=== PATIENT | male | born 1945 | race Caucasian/White ===

== ENCOUNTER 2017-11-28 00:48 | Day surgery (SDC) | payer MEDICARE, OTHER ==
[~2017-11-28] VITALS: Ht 177.8 cm; Wt 92.1 kg
[~2017-11-28 00:48] MED LIST: LEVO750T25 PO; OND4 PO; OXYC1TAB54 FT; TAM4 PO
[2017-11-28] MEDS ORDERED: cefTRIAXone(*) 1 GM VIAL 1 GM in NS(*) 0.9% 100 ML ADDVANT BAG 100 ML IVPB ONE (11:25)
[2017-11-28 13:05] LABS: PLATELET COUNT, AUTOMATED 111 K/uL (150-450)
[2017-11-28] MEDS ORDERED: cefTRIAXone(*) 2 GM VIAL 2 GM in NS(*) 0.9% 100 ML ADDVANT BAG 100 ML IVPB ONE ×2 (13:20→13:50)
[2017-11-28 13:45] VITALS: BP 157/96
[2017-11-28] MEDS ORDERED: MIDAZOLAM 2 MG/2 ML VIAL IVP PRN (13:50)
[2017-11-28] MEDS ORDERED: NORMOSOL R SOLN(*) 1000 ML BAG 1,000 ML IV PRN (13:50)
[2017-11-28] MEDS ORDERED: GENTAMICIN(*) 80 MG/2 ML VIAL 160 MG in NS(*) 0.9% 100 ML BAG 100 ML IVPB ONE (13:50)
[2017-11-28] MEDS ORDERED: LIDOCAINE/SOD BICARB 8.4% SYR ID ONE (13:50)
[2017-11-28] MEDS ORDERED: FAMOTIDINE 20 MG TAB PO ONE (13:50)
[2017-11-28] MEDS ORDERED: fentaNYL CITR 100 MCG/2 ML AMP ONE (14:00)
[2017-11-28] MEDS ORDERED: PROPOFOL EMUL(*) 10MG/ML 20 ML 60 ML ONE (14:01)
[2017-11-28] MEDS ORDERED: LIDOCAINE 2% IV 100 MG/5ML SYR ONE (14:06)
[2017-11-28] MEDS ORDERED: DEXAMETHASONE SOD 4 MG/ML VIAL ONE (15:00)
[2017-11-28] MEDS ORDERED: ONDANSETRON 4 MG/2 ML VIAL ONE (15:00)
[2017-11-28] MEDS ORDERED: WATER FOR IRRIG,STERILE 3000ML IR ONE (15:16)
[2017-11-28] MEDS ORDERED: PROPOFOL EMUL(*) 10MG/ML 20 ML 20 ML ONE (15:19)
--- NOTE | 2017-11-28 16:12 | RADIOLOGY IMAGING REPORT ---
FACILITY: [facility] PATIENT NAME: Magno Herr : 1945 MR: [id number] V: [id number] EXAM DATE: ORDERING PHYSICIAN: AILYN HERNANDEZ TECHNOLOGIST: Location: [facility] - [place] Patient: Magno Herr : 1945 Visit/Account:[id number] Date of Sevice: 11/28/2017 Exam type: PROSTATE BIOPSY History: Prostate biopsy Comparison: None. Findings: The prostate biopsy was performed by Dr. Hernandez. Sonographic assistance was provided. Please see Dr. Hernandez's note for complete details IMPRESSION: 1. As above Report Dictated By: Tanesha Nassar MD at 11/28/2017 4:08 PM Report E-Signed By: Tanesha Nassar MD at 11/28/2017 4:08 PM WSN:[id number]
[2017-11-28] MEDS ORDERED: FAMO20TA28 PO (16:56)
[2017-11-28] MEDS ORDERED: TAMS0.4C25 PO (16:57)
[2017-11-28] MEDS ORDERED: IBUP800T37 PO (16:58)
[2017-11-28] MEDS ORDERED: LEVO-85 PO (16:59)
[2017-11-28 17:00] VITALS: BP 104/88
[2017-11-28] MEDS ORDERED: HYDR-4309 PO (17:00)
[2017-11-28] MEDS ORDERED: TAMSULOSIN HCL 0.4 MG CAP ONE (17:03)
[2017-11-28 17:06] VITALS: BP 136/75
[2017-11-28 17:09] VITALS: BP 117/80
--- NOTE | 2017-11-28 20:17 | OPERATIVE REPORT 1 ---
EVENT DATE: November 28, 2017 SURGEON: Sander Henao MD ANESTHESIOLOGIST: Jignesh Coleman MD ANESTHESIA: General anesthetic. PREOPERATIVE DIAGNOSES 1. Abnormal-feeling prostate, etiology ? 2. Elevated prostate-specific antigen. POSTOPERATIVE DIAGNOSES 1. Abnormal-feeling prostate, etiology ? 2. Elevated prostate-specific antigen. PROCEDURES PERFORMED 1. Prostate ultrasound. 2. Prostate biopsies transrectally times 12. 3. Cystourethroscopy. 4. Evacuation of multiple blood clots. DESCRIPTION OF PROCEDURE Under general anesthetic, the patient was prepped and draped in the extended lithotomy position. The prostate ultrasound probe was introduced. The prostate was scanned, measured to approximately 125 g. I noted diffuse mottling. There were diffuse calculi with grossly more involvement of the right apical area. Biopsies were obtained from the base, mid, and apical areas of the prostate bilaterally for a total of 12 samples. At conclusion of the biopsies, the probe was removed. Digital examination revealed minimal bright red blood in the rectal ampulla. The patient was reprepped and draped. A 21 panendoscope admitted through the urethra to the bladder. The urethra was normal. The prostate showed trilobar hyperplasia with obstruction and a long, deep prostate both AP and the longitudinal areas. Minimal bleeding in the prostatic urethra. Minimal inflammation. Verumontanum was normal. No inflammation of the verumontanum. Bladder showed 4+ trabeculation. Trigone and ureteral orifices were normal. There were multiple blood clots that were evacuated clear. Next, it filled under gravity flow to approximately 350 mL. Bladder was drained. Scope was withdrawn. Digital rectal examination revealed no blood in the rectal ampulla. Patient tolerated the procedure satisfactorily and returned to the recovery room in satisfactory condition. This is a 72-year-old white male complaining of trouble urinating. Patient states he is unable to urinate at all at times, has increased frequency of urination. Patient has nocturia times one to two. Flow is weak and slow. No dysuria or hematuria. Voids every two to three hours. Patient has suffered urgency incontinence. No history of urinary tract infection or prior urinary tract procedures. Patient had urolithiasis issues in 1991 and 1995. Patient had PSA in the 75+ range. Considered to have normal-feeling prostate and elevated PSA. Recommended prostate ultrasound and biopsies. That has been accomplished. See operative note for details. Patient will be discharged home on Levaquin, Pepcid, Motrin, and Pyridium therapy. Analgesics will be [place]. Plan followup in the office this coming Saturday. He is to call for an appointment. Patient was given my personal phone number to contact me if he has any problems , and if he is unable to urinate, he is to go to the Emergency Room. PAYAL
== END 2017-11-28 16:45 | disposition home or self-care (01) ==
LOC: OR 00:48
DX: R97.20 Elevated prostate specific antigen [PSA] (principal)
CPT/HCPCS: 36415; 52001; 55700; 76942; 85025; 88305; 88344; A9270; J0696; J1100; J1580; J2001; J2405; J2704; J3010; J7050; 82310; 82374; 82435; 82565; 82947; 84132; 84295; 84520

== ENCOUNTER → 2017-12-10 | Outpatient (CLI) | payer MEDICARE, OTHER ==
[~2017-12-10] MED LIST changes: +FAMO20TA28 PO; +HYDR-4309 PO; +IBUP800T37 PO; +IOPAMIDOL 76% 75 ML INFUS BTL 75 ML ONE; +LEVO-85 PO; +TAMS0.4C25 PO
--- NOTE | 2017-12-10 11:27 | RADIOLOGY IMAGING REPORT ---
FAC[place] [facility] [place]IENT NAME: Magno Herr : 1945 MR: [id number] V: [id number] EXAM DATE: ORDERING PHYSICIAN: AILYN HERNANDEZ TECHNOLOGIST: Location: [facility] - [place] Patient: Magno Herr : 1945 Visit/Account:[id number] Date of Sevice: 12/10/2017 Nuclear Medicine Whole Body Bone Scan Indication: Prostate carcinoma Comparison: none Technique: 24.6 mCi technetium 99m HDP was injected intravenously. Delayed anterior and posterior wh ole body gamma camera images were obtained. Additional gamma camera images: Bilateral lateral spot gamma camera images of the skull Findings: Bone radiotracer activity: Moderate focal activity of a left lateral 8th or 9th rib. Mild focal acti vity at the right anterior 5th and 6th rib near the costochondral junction, and the right anterior 3r d rib. Multifocal activity is noted at both wrists, greater on the right side, and in the periodontal area. Mild focal activity is also noted in the left mid cervical spine. Extraosseous radiotracer activity: normal Renal and urinary collecting system activity: normal. IMPRESSION: 1. Mild activity in a left lateral lower rib and especially in a few right anterior ribs may be due t o prior trauma, or less likely, metastatic disease. Correlate with clinical history. CT of the chest may be helpful for further assessment. 2. Focal increased sites of activity in the wrists and left mid cervical spine is likely degenerative . 3. Periodontal disease. Report Dictated By: Chrissy Washington MD at 12/10/2017 11:13 AM Report E-Signed By: Chrissy Washington MD at 12/10/2017 11:22 AM WSN:[id number]
--- NOTE | 2017-12-10 16:46 | RADIOLOGY IMAGING REPORT ---
FACILITY: [facility] - [place] PATIENT NAME: Magno Herr : 1945 MR: [id number] V: [id number] EXAM DATE: ORDERING PHYSICIAN: AILYN HERNANDEZ TECHNOLOGIST: Location: [facility] Patient: Magno Herr : 1945 Visit/Account:[id number] Date of Sevice: 12/10/2017 ABDOMEN/PELVIS W/WO CONTRAST HISTORY: Prostate cancer TECHNIQUE: Axial images acquired through the abdomen/pelvis both with and without IV contrast.. Robert nal and sagittal reformatting also performed. Dose Lowering Technique One of the following dose optimization techniques was utilized in the performance of this exam: Autom ated exposure control; adjustment of the mA and/or kV according to the patient's size; or use of an i terative reconstruction technique. Specific details can be referenced in the facility's radiology C T exam operational policy. CONTRAST: 75 mL Isovue-370 COMPARISON: CT abdomen and pelvis March 29, 2012 FINDINGS: Visualized lung bases: Negative. Hepatobiliary: Negative. Spleen: Numerous calcified granulomas Adrenals: Negative. Pancreas: Negative. Kidneys ureters and bladder: Multiple bilateral renal cysts. There is an additional subcentimeter hy podensity posterior aspect mid pole of the right kidney which is too small to characterize. Genitalia: Prostate gland is markedly enlarged extremely inhomogeneous and impinges upon the floor t he urinary bladder. Seminal vesicles likewise appear prominent. GI: There Is diverticulosis of the left-sided colon although no CT evidence of acute diverticulitis. Vessels/spaces/nodes: There is extensive pelvic adenopathy. A client representative right external iliac l ymph node measures 3.8 x 3.2 cm. A client representative left external iliac lymph node measures 1.8 x 1.6 cm a client representative right common iliac lymph node measures 2.3 x 1.8 cm a client representative left common iliac lymph node measures 2.5 x 1.7 cm. There are additional smaller aortocaval lymph nodes Bones/soft tissues: There are moderate spondylotic changes in the lumbar spine. Several tiny sclero tic foci seen in the left femoral head right and left issue him likely representing bone islands give n the lack of isotope uptake on today's bone scan. There are old appearing bilateral rib fractures Additional findings: None pertinent. IMPRESSION: Large inhomogeneous prostate gland impinging upon the floor the bladder with prominent seminal vesicl es. These finds are consistent with the clinical history of prostate cancer. There is extensive pel rebel and aortocaval adenopathy as detailed above Diverticulosis of the left-sided colon although no CT evidence of acute diverticulitis Evidence of a prior granulomatous process No evidence of osseous metastases Report Dictated By: Tanesha Nassar MD at 12/10/2017 4:30 PM Report E-Signed By: Tanesha Nassar MD at 12/10/2017 4:41 PM HARVEYN:[email or web address]
== END ==
LOC: CT 01:20
DX: D73.89 Other diseases of spleen (principal); N28.1 Cyst of kidney, acquired; C61 Malignant neoplasm of prostate; K57.30 Diverticulosis of large intestine without perforation or abscess without bleeding; M47.896 Other spondylosis, lumbar region; M47.892 Other spondylosis, cervical region; K05.6 Periodontal disease, unspecified
CPT/HCPCS: 74178; 78306; A9503; Q9967

== ENCOUNTER 2018-01-16 07:59 | Outpatient (RCR) | payer MEDICARE, OTHER ==
[2017-12-31 08:07] VITALS: BP 148/92
[2017-12-31 09:38] LABS: PLATELET COUNT, AUTOMATED 93 K/uL (150-450)
--- NOTE | 2017-12-31 22:52 | ONCOLOGY CONSULTATION ---
EVENT DATE: December 31, 2017 REFERRING PROVIDER Sander Henao MD REASON FOR CONSULTATION Newly diagnosed prostate cancer, second opinion. CHIEF COMPLAINT Patient feels well today. HISTORY OF PRESENT ILLNESS Mr. Herr is a very pleasant, 72-year-old gentleman who is otherwise healthy. He recently presented with an abnormal prostate exam, and he underwent prostate biopsies. His PSA was noted to be 75. The prostate biopsies revealed evidence of prostate adenocarcinoma in multiple cores with the highest grade cancer being Hackberry score 4 + 4 = 8. He underwent a bone scan on December 10 which revealed some mild activity in a left lateral lower rib as well as a few right anterior ribs, thought possibly due to trauma or less likely metastatic disease. Otherwise, the scan was consistent with degenerative disease and some periodontal disease. He also underwent a CT scan of the abdomen and pelvis on December 10. This scan revealed a large prostate gland impinging upon the floor of the bladder with prominent seminal vesicles. There was extensive pelvic and aortocaval lymphadenopathy as well as findings consistent with diverticulosis. There was no evidence of bony metastatic disease. REVIEW OF SYSTEMS Otherwise negative with the exception of some urinary frequency. All systems were reviewed. PAST MEDICAL HISTORY I see that the patient has a history of nephrolithiasis. CURRENT MEDICATIONS 1. Ibuprofen p.r.n. 2. Flomax. 3. Pepcid. ALLERGIES No known drug allergies. SOCIAL HISTORY The patient does smoke cigarettes, but there is no history of alcohol abuse or illicit drug use. He is retired. He had previously worked at the [employer]. He is , and he has three grown children. FAMILY HISTORY There is a history of colon cancer in his sister, and his mother was diagnosed with ALS. PHYSICAL EXAMINATION VITAL SIGNS: Temperature 97.5, blood pressure 148/92, heart rate 78, respirations 16, oxygen saturation is 95% on room air. Weight is 92.7 kg. GENERAL: Patient is alert and oriented times three. No acute distress, sitting in the exam room chair. He appears healthy. He is interactive and quite pleasant. HEENT: Anicteric sclerae. NEUROLOGIC: Grossly nonfocal, and his gait is normal. EXTREMITIES: No edema, clubbing, or cyanosis. SKIN: Cursory, reveals no concerning rash or lesion. LABORATORY STUDIES Reviewed per the [facility] record. CBC, CMP, and PSA are pending today. IMAGING Please see History of Present Illness. PATHOLOGY Please see History of Present Illness. ASSESSMENT AND PLAN Newly diagnosed Naresh 8 prostate adenocarcinoma, stage [place]. I had a good visit with Mr. Herr and his today. Symptomatically, he seems to be doing quite well. He is here for a second opinion about prostate cancer management. We spent time today discussing his recent diagnosis of prostate cancer with highest grade on core biopsies of 4 + 4 = 8. We discussed the nature of this prostate cancer, staging as it relates to prognosis and treatment decision making, and potential options for him in this regard. We first discussed that surgical management of his prostate cancer is very unlikely to forward his situation and that I would not recommend it. We moved on to discuss androgen deprivation therapy, which I do think he strongly needs to consider. We discussed androgen deprivation therapy in detail, including goals of care and expectations for side effects. We discussed both continuous and intermittent androgen deprivation therapy strategies. We also discussed more recent data suggesting potential benefit from upfront chemotherapy with six cycles of Taxotere. We discussed results of both the STAMPEDE and CHAARTED trials. We also reviewed the data behind addition of abiraterone to his treatment regimen of ADT in the hormone-sensitive setting. We discussed the results of his bone scan, which is not particularly consistent with metastatic disease, but he does have extensive pelvic and aortocaval lymphadenopathy. We moved on to discuss quality of life concerns, and the patient does seem to have very reasonable expectations for his treatment. He would like to go home and discuss things further with his family. He would like to give me a call with his decision for treatment in the next few weeks. This is certainly reasonable. As discussed today, at a minimum I would want to see him back in a month or two to see how he is doing, but it would be holt for him to get started on treatment as soon as possible. The patient and his had multiple insightful and appropriate questions for me today. I believe I answered all their questions to their satisfaction. I spent a total of 65 minutes of time [id number] with the patient and his today, and 60 minutes of this was spent in direct counseling and coordination of care. LABORATORY [*] IMPRESSION [*] PLAN [*] MTDD
[~2018-01-16] VITALS: Ht 172.7 cm; Wt 95.1 kg
[~2018-01-16 07:59] MED LIST changes: -IOPAMIDOL 76% 75 ML INFUS BTL 75 ML ONE
[2018-01-16 08:11] VITALS: BP 170/92
--- NOTE | 2018-01-16 17:52 | ONCOLOGY FOLLOW UP NOTE ---
EVENT DATE: January 16, 2018 REASON FOR FOLLOWUP Stage SKYLAR prostate adenocarcinoma. CHIEF COMPLAINT Patient feels well today. INTERIM HISTORY Mr. Herr is here for a follow-up visit today. He is accompanied by his . Since our list visit, he reports no new symptoms. He has had some ongoing urinary frequency, but he denies pain. His appetite is good, his weight has been stable. He has been frustrated by the weather recently, as rain has prevented him from haying. He is here to discuss potential start time for androgen deprivation therapy, and he has many questions. REVIEW OF SYSTEMS Otherwise negative, and all systems are reviewed. PAST MEDICAL HISTORY I see that the patient has a history of nephrolithiasis. CURRENT MEDICATIONS 1. Ibuprofen p.r.n. 2. Flomax. 3. Pepcid. ALLERGIES No known drug allergies. SOCIAL HISTORY The patient does smoke cigarettes, but there is no history of alcohol abuse or illicit drug use. He is retired. He had previously worked at the [employer]. He is , and he has three grown children. FAMILY HISTORY There is a history of colon cancer in his sister, and his mother was diagnosed with ALS. PHYSICAL EXAMINATION VITAL SIGNS: Temperature 97.1, blood pressure 170/92, heart rate 72, respirations 16, oxygen saturation is 94% on room air. Weight is 209.8 pounds. . GENERAL: Patient is alert and oriented times three in no apparent distress, sitting in the exam room chair. He is interactive and quite pleasant. HEENT: Anicteric sclerae. NEUROLOGIC: Grossly nonfocal, and his gait is normal. EXTREMITIES: No edema, clubbing, or cyanosis. There is no erythema or tenderness to palpation. SKIN: Reveals no concerning rash or lesion. LABORATORY STUDIES Reviewed per the [employer] record. His PSA on December 31 was 75.9. IMAGING None today. ASSESSMENT AND PLAN Stage SKYLAR.hormone sensitive prostate adenocarcinoma, untreated. I had a good visit with Mr. Herr today. Since our last visit, he has had an opportunity to think about and review our initial discussion with his family. He has not yet begun androgen deprivation therapy. We spent a good deal of time today reviewing much of the topics that were discussed at our initial visit. These include prognosis, treatment strategy, expectations for response, how we will surveil his prognosis, and innovative therapies currently available. I believe I answered all of Mr. Herr's questions to his satisfaction today. Moving on , we discussed that androgen deprivation therapy with degarelix (monthly injections to start) would likely be the most reasonable way for him to begin treatment. He is quite concerned about toxicity of androgen deprivation therapy , understandably. He agrees that monthly injections would likely be favorable, as opposed to starting off immediately with Lupron injections every three months. The is currently under way, and weather has thwarted some of his efforts. He strongly wishes to wait until the season is over, and he would then start androgen deprivation therapy, likely in the next few weeks to a month. As discussed, I would want him to get started as soon as possible. He does have ongoing urinary symptoms. He expresses understanding. He will call us when he is ready to start. We will work on orders and preauthorization with insurance today. I will plan to see him back about one month after he initiates androgen deprivation therapy after repeat labs. I spent a total of 30 minutes of time [id number] with the patient and his today, and 25 minutes of this was spent in direct counseling and coordination of care. PAYAL
== END 2018-01-23 13:57 | disposition home or self-care (01) ==
LOC: ONC 07:59
PROVIDERS: ATTEND Internal Medicine Medical Oncology
DX: C61 Malignant neoplasm of prostate (principal); R35.0 Frequency of micturition; F17.210 Nicotine dependence, cigarettes, uncomplicated
CPT/HCPCS: 36415; 84153; 85025; G0463; 82040; 82247; 82310; 82374; 82435; 82565; 82947; 84075; 84132; 84155; 84295; 84450; 84460; 84520; 99202; 99212

== ENCOUNTER 2018-05-14 15:17 | Outpatient (RCR) | payer MEDICARE, OTHER ==
[2018-02-17 12:54] VITALS: BP 165/95
[2018-02-17 13:23] LABS: PLATELET COUNT, AUTOMATED 97 K/uL (150-450)
[2018-03-17 09:09] VITALS: BP 152/110
[2018-03-17 09:18] VITALS: BP 152/104
[2018-03-17 09:35] LABS: PLATELET COUNT, AUTOMATED 109 K/uL (150-450)
[2018-04-14 11:22] LABS: PLATELET COUNT, AUTOMATED 108 K/uL (150-450)
[2018-04-14 11:23] VITALS: BP 162/91
[~2018-05-14 15:17] MED LIST changes: +DEGARELIX ACETATE 240 MG SQ ONE; +DEGARELIX ACETATE 80 MG SQ ONE; -HYDR-4309 PO; +HYDR-653 PO
[2018-05-14 15:32] VITALS: BP 156/93
[2018-05-14] MEDS ORDERED: DEGARELIX ACETATE 80 MG SQ ONE (15:35)
[2018-05-14 15:49] LABS: PLATELET COUNT, AUTOMATED 107 K/uL (150-450)
--- NOTE | 2018-05-14 21:07 | ONCOLOGY FOLLOW UP NOTE ---
EVENT DATE: May 14, 2018 REASON FOR FOLLOWUP Stage SKYLAR, hormone-sensitive, Naresh 8 prostate adenocarcinoma. INTERIM HISTORY Mr. Herr returns to clinic for a followup visit today. He is accompanied by his . He initiated monthly Firmagon injections on February 17. He reports that the injections themselves have been quite tolerable, and he is satisfied with the lack of side effects that he has experienced. He does report an occasional modest hot flash, but these have not been particularly problematic. He reports no new pain and no new urinary symptoms. His appetite is good, and his weight has been stable. He does report some fatigue. He has many questions today. REVIEW OF SYSTEMS Otherwise negative, and all systems were reviewed. PAST MEDICAL HISTORY 1. Prostate cancer, as above. 2. History of nephrolithiasis. CURRENT MEDICATIONS 1. Ibuprofen p.r.n. 2. Flomax p.r.n. 3. Pepcid p.r.n. ALLERGIES No known drug allergies. SOCIAL HISTORY The patient does smoke cigarettes, but there is no history of alcohol abuse or illicit drug use. He is retired. He had previously worked at the [employer]. He is , and he has three grown children. FAMILY HISTORY There is a history of colon cancer in his sister, and his mother was diagnosed with ALS. VITAL SIGNS Temperature is 98.3, blood pressure 156/93, heart rate is 76, respirations 16, oxygen saturation is 93% on room air. Weight is 213.7 pounds. PHYSICAL EXAMINATION GENERAL: Patient is alert and oriented times three, no acute distress, sitting in the exam room chair. He is pleasant and interactive. HEENT: Anicteric sclerae. NEUROLOGIC: Grossly nonfocal, and his gait is normal. SKIN: No concerning rash or lesion. EXTREMITIES: No edema, clubbing, or cyanosis. There is no erythema or tenderness to palpation. LABORATORY STUDIES Reviewed per the [employer] record. ASSESSMENT AND PLAN Stage SKYLAR, Naresh 8 prostate adenocarcinoma. I had a lengthy and in depth visit with Mr. Herr and his today. Symptomatically, he continues to do quite well. Side effects from androgen deprivation therapy with Firmagon at this point are minimal. He does report occasional hot flashes, but these have been tolerable. We spent time today reviewing his labs. His PSA trend over time is certainly encouraging with the most recent PSA being 10. He is happy to hear this. We discussed his options for ongoing treatment. First, these include ongoing androgen deprivation therapy with a switch to Lupron every three months in the near future should he want to do this for the sake of less injections over time. He also has the option for continuous versus intermittent androgen deprivation therapy. He will continue with continuous androgen deprivation for now. Another option would be for him to consider cytotoxic chemotherapy with Taxotere for six cycles. We reviewed findings from the CHAARTED trial today. Mr. Herr is not particularly sure he would want to entertain the idea of doing chemotherapy. He is concerned about toxicity, and he is most concerned about quality of life. We also discussed potential use of abiraterone and prednisone in addition to androgen deprivation therapy, and we also reviewed the STAMPEDE trial today. In addition, he would potentially have the option of sitting down with Radiation Oncology to discuss the merits of additional of radiation therapy to his treatment strategy. Recent data would suggest that this would potentially bring some added benefit. [place] had many questions about his options today, and I believe I answered all these questions to his satisfaction. He would like to go home, think about this for a while, and talk with his family. This is certainly reasonable. He would like to transition to every three-month Lupron injections from Firmagon. He will likely need to receive the Firmagon again today, however. I will plan to see him back in the next two to three months in my [facility] clinic or sooner if there are questions or concerns. I spent a total of 45 minutes of time [id number] with the patient and his today, and 40 minutes of this were spent in direct counseling and coordination of care. PAYAL
== END 2018-05-18 ==
LOC: SPU 15:17
PROVIDERS: ATTEND Internal Medicine Medical Oncology
DX: Z51.11 Encounter for antineoplastic chemotherapy (principal); C61 Malignant neoplasm of prostate; Z72.0 Tobacco use
CPT/HCPCS: 84153; 85025; 96372; 96402; G0463; J9155; 82040; 82247; 82310; 82374; 82435; 82565; 82947; 84075; 84132; 84155; 84295; 84450; 84460; 84520; 99212

== ENCOUNTER → 2018-09-09 | Outpatient (RCR) | payer MEDICARE, OTHER ==
[2018-08-11 09:54] VITALS: BP 151/94
[2018-08-11 10:02] LABS: PLATELET COUNT, AUTOMATED 108 K/uL (150-450)
[2018-08-13 10:31] VITALS: BP 178/99
--- NOTE | 2018-08-25 07:57 | ONCOLOGY FOLLOW UP NOTE ---
EVENT DATE: August 13, 2018 REASON FOR FOLLOWUP Stage SKYLAR, hormone-sensitive, [place] 8 prostate adenocarcinoma. INTERIM HISTORY Mr. Herr returns to clinic for a followup visit today. Since our last visit, he has been receiving monthly Firmagon injections. He does report some expected fatigue and hot flashes but these have both been manageable. He has good appetite. His weight has been stable. He reports no new urinary symptoms. He denies new pain. He has had no changes in bowel habits. He reports no shortness of breath, chest pain or cough. REVIEW OF SYSTEMS Otherwise negative and all systems were reviewed. PAST MEDICAL HISTORY 1. Prostate cancer, as above. 2. History of nephrolithiasis. CURRENT MEDICATIONS 1. Ibuprofen p.r.n. 2. Flomax p.r.n. 3. Pepcid p.r.n. ALLERGIES No known drug allergies. SOCIAL HISTORY The patient does smoke cigarettes, but there is no history of alcohol abuse or illicit drug use. He is retired. He had previously worked at the [employer]. He is , and he has three grown children. FAMILY HISTORY There is a history of colon cancer in his sister, and his mother was diagnosed with ALS. VITAL SIGNS Temperature is 97.0, blood pressure 178/99, heart rate is 81, respirations 16, oxygen saturation is 92% on room air. Weight is 99.5 kg. PHYSICAL EXAMINATION GENERAL: Patient is alert and oriented x3, no apparent distress, sitting in the exam room chair. He is interactive and quite pleasant. HEENT: Anicteric sclerae. NEUROLOGIC: Grossly nonfocal and his gait is normal. SKIN: No edema, clubbing or cyanosis. EXTREMITIES: No concerning rash or lesion. LABORATORY STUDIES Reviewed per the [facility] record. ASSESSMENT AND PLAN 1. Stage SKYLAR, [place] 8 prostate adenocarcinoma. Hormone-sensitive disease. I had a good visit with Mr. Herr and his today. Symptomatically, he continues to do pretty well with expected toxicity from ongoing androgen deprivation therapy. We spent time reviewing his labs. His PSA continues to decline, most recently just above 5. He was happy to hear this. We spent more time today reviewing his options moving forward for therapy, as we have discussed at length in the past. We discussed continuous versus intermittent androgen deprivation. We discussed paclitaxel chemotherapy as well as the addition of abiraterone and prednisone. We discussed the pros and cons of each of these strategies in detail. For the time being, Mr. Herr is satisfied with how things are going and he has a realistic view of his prognosis and expectations. I will plan to see him back in three months for followup or sooner if there are questions or concerns. 2. Hypertension. Mr. Hairs blood pressure is quite high today. He has no concerning symptoms, however. He does not have a primary care provider and, as discussed in the past, I would strongly suggest that he establish care with a primary care provider to make sure he is staying on top of health maintenance, including blood pressure control and other concerns. I spent a total of 30 minutes of time [id number] with the patient today and 25 minutes of this was spent in direct counseling and coordination of care. PAYAL
[~2018-09-09] MED LIST changes: -DEGARELIX ACETATE 240 MG SQ ONE; -DEGARELIX ACETATE 80 MG SQ ONE; +LEUPROLIDE ACET 22.5 MG KIT SUBQ ONE
[2018-09-09 15:36] VITALS: BP 150/88
[2018-09-09 16:07] LABS: PLATELET COUNT, AUTOMATED 114 K/uL (150-450)
== END ==
LOC: SPU 06-11 06:56 → ONC 08-13 10:24 → SPU 15:28
PROVIDERS: ATTEND Internal Medicine Medical Oncology
DX: C61 Malignant neoplasm of prostate (principal)
CPT/HCPCS: 36415; 84153; 84403; 85025; 96372; 96402; G0463; J9217; 82040; 82247; 82310; 82374; 82435; 82565; 82947; 84075; 84132; 84155; 84295; 84450; 84460; 84520; 99212

== ENCOUNTER → 2018-11-10 | Outpatient (CLI) | payer MEDICARE, OTHER ==
[~2018-11-10] MED LIST changes: -LEUPROLIDE ACET 22.5 MG KIT SUBQ ONE
--- NOTE | 2018-11-10 13:29 | RADIOLOGY IMAGING REPORT ---
[place] [facility] [place]: Magno Herr : 1945 MR: [id number] V: [id number] EXAM DATE: ORDERING PHYSICIAN: ARTURO COOPER TECHNOLOGIST: Location: [facility] - [place] Patient: Magno Herr : 1945 Visit/Account:[id number] Date of Sevice: 11/10/2018 NM BONE SCAN COMPLETE HISTORY: Prostate CA TECHNIQUE: 21.9 mCi technetium 99m MDP was injected intravenously. Delayed anterior and posterior bod y gamma camera images were obtained. Additional gamma camera images: Bilateral skull films. COMPARISON STUDIES: 12/10/2017 FINDINGS: Homogenous radiotracer uptake throughout the axial and appendicular skeletal structures. Mild uptake noted along the lateral tibial metaphyses bilaterally similar to the previous examination. Small fo perla areas of uptake within the mid foot structures bilaterally and within both wrists consistent with DJD. Small focus of uptake noted in the left mid cervical spine. Small focus of activity noted in the T10 vertebral body posteriorly on the left is slightly likely more conspicuous than the previous examina tion. An area of increased activity at the T7 level on the left is less pronounced. The previously seen focus of increased uptake within the eighth left lateral rib has resolved. Mild focal activity within the anterior right fifth and sixth ribs near the costochondral junction is less pronounced. No abnormality noted within the skull. IMPRESSION: 1. Area of abnormal uptake within the left eighth rib has resolved. 2. Stable appearing DJD type changes within the appendicular and axial skeletal structures as descri bed. Slight increased uptake within the T10 vertebral body posteriorly left of midline and compared to previous study is the only area of potential concern on this study that appears to correlate with a Schmorl's node on a CT scan from 2018. Report Dictated By: David Castillo MD at 11/10/2018 12:44 PM Report E-Signed By: David Castillo MD at 11/10/2018 1:24 PM WSN:[email or web address]
--- NOTE | 2018-11-10 15:47 | RADIOLOGY IMAGING REPORT ---
FACILITY: [facility] PATIENT NAME: Magno Herr : 1945 MR: [id number] V: [id number] EXAM DATE: ORDERING PHYSICIAN: ARTURO COOPER TECHNOLOGIST: Location: [facility] [place] Patient: Magno Herr : 1945 Visit/Account:[id number] Date of Sevice: 11/10/2018 CT scan of the chest, abdomen, and pelvis without and with contrast. HISTORY: Prostate cancer. COMPARISON: 12/10/2017. [address] images were obtained of the chest, abdomen, and pelvis before and after intravenous inj ection of 100 mL Isovue-370. No oral contrast. One of the following dose optimization techniques wa s utilized in the performance of this exam: Automated exposure control; adjustment of the mA and/or k V according to the patient's size; or use of an iterative reconstruction technique. Specific detail s can be referenced in the facility's radiology CT exam operational policy. FINDINGS: The thoracic aorta is mildly calcified and ectatic. The coronary arteries are calcified. Calcified granulomas are present in the mediastinum, right pulmonary hilum, and right lung. No bulky mediastin al or hilar adenopathy. Mild streaky densities are present in the periphery of both lungs. The lung s are otherwise clear. The liver and spleen are normal in size. A 5 mm low-density lesion is present in the left liver lobe , unchanged. The gallbladder and bile ducts are unremarkable. The pancreas is normal in size. Mult iple calcifications are scattered in the spleen. The kidneys and adrenal glands are normal in size. Several cysts measuring up to 5 cm in diameter are scattered in the right kidney. Several cysts cecilia suring up to 4.4 cm in diameter are scattered in the left kidney. The ureters are unremarkable. The prostate gland is enlarged and mildly calcified measuring 5.1 cm in transverse diameter. The med amanda lobe of the prostate gland protrudes into the bladder base. The bladder arteaga are minimally trab eculated. Several small lymph nodes measuring less than 1.5 cm in diameter are scattered in the abdomen, retrop eritoneum, and pelvis. Left pelvic adenopathy has resolved compared to previous. The abdominal aorta and iliac arteries are calcified and mildly ectatic. The appendix is not well-vi sualized. Degenerative changes are present in the spine. IMPRESSION: Aortic and coronary atherosclerosis. Old granulomatous disease. Bilateral renal cysts. Mildly enlarged prostate gland. Nonobstructing left nephrolithiasis. Resolution of left pelvic adenopathy. Otherwise negative for evidence of metastatic disease. Report Dictated By: Wilber Eldridge MD at 11/10/2018 3:31 PM Report E-Signed By: Wilber Eldridge MD at 11/10/2018 3:43 PM WSN:[email or web address]
== END ==
LOC: NUC 08:45
PROVIDERS: ATTEND Internal Medicine Medical Oncology
DX: I25.10 Atherosclerotic heart disease of native coronary artery without angina pectoris (principal); N40.0 Benign prostatic hyperplasia without lower urinary tract symptoms; N20.0 Calculus of kidney
CPT/HCPCS: 36415; 71270; 74178; 78306; 82565; A9503; Q9967

== ENCOUNTER 2019-01-29 10:59 | Outpatient (RCR) | payer MEDICARE, OTHER ==
[2018-11-20 10:17] VITALS: BP 171/102
--- NOTE | 2018-11-21 03:32 | ONCOLOGY FOLLOW UP NOTE ---
EVENT DATE: November 20, 2018 REASON FOR FOLLOWUP Stage SKYLAR, hormone-sensitive, [place] 8 prostate adenocarcinoma. INTERIM HISTORY Mr. Herr returns to clinic for a followup visit today. He is accompanied by his . Since our last visit, he has been feeling about the same. He does report some fatigue, as well as hot flashes. The flashes tend to be most prominent toward the end of each Lupron cycle. He reports no new pain. His appetite is good. His weight has been stable. Haying season is starting now. He has had no new urinary symptoms. He has had no changes in his bowel habits. He has undergone followup CT and bone scan, and he is here to review the results. REVIEW OF SYSTEMS Otherwise negative on all systems reviewed. PAST MEDICAL HISTORY 1. Prostate cancer, as above. 2. History of nephrolithiasis. CURRENT MEDICATIONS 1. Ibuprofen p.r.n. 2. Flomax p.r.n. 3. Pepcid p.r.n. ALLERGIES No known drug allergies. SOCIAL HISTORY The patient does smoke cigarettes, but there is no history of alcohol abuse or illicit drug use. He is retired. He had previously worked at the [employer]. He is , and he has three grown children. FAMILY HISTORY There is a history of colon cancer in his sister, and his mother was diagnosed with ALS. VITAL SIGNS Temperature is 98.4, blood pressure 171/12, heart rate 88, respirations 18, oxygen saturation 92% on room air. Weight is 221.6 pounds. PHYSICAL EXAMINATION GENERAL: Patient is alert and oriented x3, in no apparent distress, sitting in the exam room chair. He is interactive and pleasant. HEENT: Anicteric sclerae. NEUROLOGIC: Exam is grossly nonfocal, and his gait is normal. SKIN: Exam reveals no concerning rash or lesion. LABORATORY STUDIES Reviewed per the [facility] record. I do not see a recent PSA, since August. IMAGING CT scan of chest, abdomen and pelvis performed on 11/10/18 reveals aortic and coronary atherosclerosis and old granulomatous disease. There are bilateral renal cysts and a mildly enlarged prostate gland. There is nonobstructing left nephrolithiasis. There has been resolution of left pelvic adenopathy and no evidence of metastatic disease. Nuclear medicine bone scan performed on 11/10/2018 reveals that the area of abnormal uptake in the left eighth rib has resolved. There are stable-appearing DJD-type changes within the appendicular and axial skeleton. There is slightly increased uptake within the T10 vertebral body, posterior left of midline, compared to the prior study. This does appear to correlate with an area deemed to be a Schmorl node on CT from 2018. ASSESSMENT AND PLAN Stage SKYLAR, [place] 8, hormone-sensitive prostate adenocarcinoma. I had a good visit with Israel and his today. Symptomatically, he continues to do pretty well with androgen deprivation therapy. He has expected toxicity, to include fatigue and hot flashes. He has no concerning symptoms otherwise. We spent time reviewing his labs and imaging. We will work on getting a repeat PSA. His imaging is encouraging. He has had resolution of pelvic lymphadenopathy on the CT scan, and no definitive evidence of bony metastatic disease on the bone scan. He was happy to hear this. We discussed his options after again reviewing the biology of this cancer and goals of treatment. He does have the option of continuing with androgen deprivation therapy alone. He has historically not been interested in adding Zytiga or Taxotere. This remains the case. As discussed, I would like to review his situation with Radiation Oncology, as well. We spent time reviewing potential merits of considerations for radiation therapy, and that I will be back in touch with him after review with colleagues. Israel had several additional questions for me today, aid I believe I answered all of his questions to his satisfaction. I will plan to see him back in the next few months. I spent a total of 30 minutes of time face to face with the patient and his today; 25 minutes of this was spent in direct counseling and coordination of care. PAYAL
[2018-12-10 09:47] VITALS: BP 168/110
[2018-12-10 10:07] LABS: PLATELET COUNT, AUTOMATED 98 K/uL (150-450)
[2019-01-21 10:34] VITALS: BP 163/103
[2019-01-28 09:41] VITALS: BP 170/99
--- NOTE | 2019-01-29 08:22 | ONCOLOGY FOLLOW UP NOTE ---
EVENT DATE: January 28, 2019 REASON FOR FOLLOWUP Stage SKYLAR, hormone sensitive, [place] 8 prostate adenocarcinoma. INTERIM HISTORY Mr. Herr returns to clinic for a followup visit today. He is accompanied by his . Since our last visit, he has continued on androgen deprivation therapy. He visited with Dr. Ross in Radiation Oncology in [facility] in mid November. Discussion took place at that time about the merits of radiation therapy and Israel reports that he had a very good visit. We spent some time reviewing his oncology history, his experience with androgen deprivation therapy and his recent followup PSA, which again is in the mid 3s. Israel is interested in receiving radiation therapy and he is curious whether the radiation could be done here at [facility]. He reports ongoing fatigue and hot flashes but these have been manageable. He reports no abnormal bleeding but he has noticed a few bruises here or there. He reports no new urinary symptoms. REVIEW OF SYSTEMS Otherwise negative and all systems reviewed. PAST MEDICAL HISTORY 1. Prostate cancer, as above. 2. History of nephrolithiasis. CURRENT MEDICATIONS 1. Ibuprofen p.r.n. 2. Flomax p.r.n. 3. Pepcid p.r.n. ALLERGIES No known drug allergies. SOCIAL HISTORY The patient does smoke cigarettes, but there is no history of alcohol abuse or illicit drug use. He is retired. He had previously worked at the [employer]. He is , and he has three grown children. FAMILY HISTORY There is a history of colon cancer in his sister, and his mother was diagnosed with ALS. VITAL SIGNS Temperature is 97.0, blood pressure 170/99, heart rate 63, respirations 16, oxygen saturation 96% on room air. Weight is 97 pounds. PHYSICAL EXAMINATION GENERAL: Patient is alert and oriented x3, in no apparent distress, sitting in the exam room chair. He appears healthy. He is interactive and pleasant. In good spirits. HEENT: Anicteric sclerae. NEUROLOGIC: Grossly nonfocal and his gait is normal. SKIN: Exam reveals no concerning rash or lesion. The rest of physical exam is deferred for discussion today. LABORATORY STUDIES Reviewed per the [facility] record. IMAGING None today. ASSESSMENT AND PLAN 1. Stage SKYLAR, [place] 8, hormone-sensitive prostate adenocarcinoma. Israel continues to do quite well with ongoing androgen deprivation therapy. He has decided to stick with ADT alone as opposed to adding abiraterone or docetaxel. Again, we spent time reviewing his recent visit in Radiation Oncology in [facility]. Israel does seem interested in moving forward with radiation therapy. ADT could continue through radiation and likely for at least the next year. He is curious whether the radiation could be done here. We will explore this. He is otherwise satisfied with how things are going and we will plan to followup in the next few months, presumably after radiation therapy is complete. 2. Thrombocytopenia. This has been chronic and not worsening. We discussed potential mechanisms for thrombocytopenia. I would first want to rule out pseudothrombocytopenia/platelet clumping. I will ask for a peripheral smear to be performed in the next few weeks. He does not have any abnormal bleeding but this should be evaluated further before he embarks on radiation therapy. PAYAL
[~2019-01-29 10:59] MED LIST changes: +LEUPROLIDE ACET 22.5 MG KIT SUBQ ONE
[2019-01-29 11:09] VITALS: BP 155/101
[2019-01-29 11:26] LABS: PLATELET COUNT, AUTOMATED 115 K/uL (150-450)
== END 2019-02-17 ==
LOC: SPU 10:59
PROVIDERS: ATTEND Internal Medicine Medical Oncology
DX: C61 Malignant neoplasm of prostate (principal); Z79.818 Long term (current) use of other agents affecting estrogen receptors and estrogen levels; R53.83 Other fatigue
CPT/HCPCS: 36415; 84153; 84403; 85007; 85025; 85027; 96372; G0463; J9217; 82040; 82247; 82310; 82374; 82435; 82565; 82947; 84075; 84132; 84155; 84295; 84450; 84460; 84520; 99212